=== PATIENT | male | born 1955 ===

== ENCOUNTER 2022-02-25 19:53 | Emergency (ER) | payer OTHER ==
[~2022-02-25] VITALS: Ht 167.6 cm; Wt 77.9 kg
[2022-02-25 20:15] LABS: BASOPHILS % (AUTO) 0.1 % (0.0-2.0); EOSINOPHILS % (AUTO) 0.2 % (1.0-6.0); HEMATOCRIT 37.2 % (41-53); HEMOGLOBIN 12.5 g/dL (13.5-17.5); LYMPHOCYTES # (AUTO) 0.6 K/uL (1.0-4.8); LYMPHOCYTES % (AUTO) 11.2 % (22.0-44.0); MEAN CORPUSCULAR HEMOGLOBIN 32.5 pg (26.0-34.0); MEAN CORPUSCULAR HGB CONC 33.6 G/dL (31.0-37.0); MEAN CORPUSCULAR VOLUME 97 fL (80-100); MONOCYTES # (AUTO) 0.2 K/uL (0.1-1.0); MONOCYTES % (AUTO) 3.1 % (2.0-9.0); NEUTROPHILS # (AUTO) 4.9 K/uL (1.8-7.7); PLATELET COUNT (AUTO) 246 K/uL (150-450); RED BLOOD CELL COUNT(AUTO) 3.84 MIL/uL (4.50-5.90); RED CELL DISTRIBUTION WIDTH 15.9 % (11.5-14.5)
[2022-02-25 20:28] LABS: ANION GAP 8 mmol/L (8-16); CALCIUM, TOTAL 8.9 mg/dL (8.8-10.5); CARBON DIOXIDE 26 mmol/L (22-29); CHLORIDE 97 mmol/L (98-107); CREATININE 1.04 mg/dL (0.60-1.30); GLUCOSE,RANDOM 353 mg/dL (70-110); POTASSIUM 4.5 mmol/L (3.5-5.1); SODIUM SERUM 131 mmol/L (136-145); UREA NITROGEN, BLOOD 17 mg/dL (7-18)
[2022-02-25] MEDS ORDERED: IOHEXOL 350 MG/ML 100 ML VIAL ONE (20:29)
[2022-02-25] MEDS ORDERED: SODIUM CHLORIDE 0.9% 100 ML ONE (20:29)
[2022-02-25 20:31] LABS: INR 1.1 (0.9-1.1); PROTHROMBIN TIME 11.2 SEC (9.4-11.6)
[2022-02-25 20:34] LABS: ALANINE AMINOTRANSFERASE 21 U/L (12-78); ALBUMIN 3.5 g/dL (3.4-5.0); ALKALINE PHOSPHATASE 73 U/L (46-116); ASPARTATE AMINOTRANSFERASE 9 U/L (15-37); BILIRUBIN,TOTAL 0.3 mg/dL (0.1-1.0); GLOMERULAR FILTR. RATE CALC > 60 mL/min (>60); TOTAL PROTEIN, SERUM 6.4 g/dL (6.4-8.2)
[2022-02-25 20:37] LABS: NEUTROPHILS % (AUTO) 85.4 % (40.0-70.0)
[2022-02-25] MEDS ORDERED: LIRA0.6P SQ (21:05)
[2022-02-25] MEDS ORDERED: METO25 PO (21:05)
[2022-02-25] MEDS ORDERED: ASPI-1450 PO (21:05)
[2022-02-25] MEDS ORDERED: ATOR20TA86 PO (21:05)
[2022-02-25] MEDS ORDERED: METF-1211 PO (21:05)
[2022-02-25] MEDS ORDERED: LEVE500T20 PO (21:05)
[2022-02-25] MEDS ORDERED: CARV3.1231 PO (21:05)
[2022-02-25] MEDS ORDERED: CLOP75TA60 PO (21:05)
[2022-02-25] MEDS ORDERED: DEXA2 PO (21:05)
[2022-02-25] MEDS ORDERED: DEXAMETHASONE SOD PHOS 4 MG/ML 5 ML VIAL IVP ONE (21:15)
[2022-02-25 21:37] LABS: COVID AG,FIA SOURCE NASOPHARYNGEAL
[2022-02-25] MEDS ORDERED: INSULIN REGULAR, HUMAN 100 UNITS/ML IVP ONE (22:00)
[2022-02-26 00:35] VITALS: BP 121/70
[2022-02-26 05:16] LABS: GLUCOMETER DEV NAME(LOC) ERT.5; GLUCOSE,POINT OF CARE 222 MG/DL (70-110)
== END 2022-02-26 00:59 | disposition short-term general hospital (02) ==
LOC: EMS 19:57
DX: I63.9 Cerebral infarction, unspecified (principal); C71.9 Malignant neoplasm of brain, unspecified; E11.65 Type 2 diabetes mellitus with hyperglycemia; Z20.822 Contact with and (suspected) exposure to COVID-19
CPT/HCPCS: 99291; 70496; 96374; 71045; 96375; 87426; 80053; 82962 ×2; 84484; 85025; 85610; 85730; 36415; 70498; 93005; 70450; J1100; J1815; Q9967; J7050